=== PATIENT | male | born 1990 | race African-American/Black ===

== ENCOUNTER 2017-01-23 18:54 | Emergency (ER) | payer SELFPAY ==
[~2017-01-23] VITALS: Ht 170.2 cm; Wt 68.0 kg
[2017-01-23] MEDS ORDERED: ALBUTEROL2.5 MG/3 M INH (19:12)
--- NOTE | 2017-01-23 19:24 | Emergency Room Report ---
History of Present Illness General Chief Complaint: Medical Clearance Source: Patient Present Illness HPI 26 YO Male presents to the ED for medical clearance for incarceration. PT C/O hx of asthma denies wheezing, SOB, or cough at this time. Denies pain, fevers, chills, TALLEY, open wounds, bleeding, skin infections.Denies CP, Palpitations, LOC , AMS, dizziness, Changes in Vision, Sensation, paresthesias, or a sudden severe headache. Allergies: Coded Allergies: No Known Allergies (Unverified , 01/23/17) Patient History Past Medical History: see triage record, asthma Past Surgical History: none Pertinent Family History: none Reviewed Nursing Documentation: PMH: Agreed, PSxH: Agreed Nursing Documentation-PMH Past Medical History: No History, Except For Hx Asthma: Yes Review of Systems All Other Systems: negative except mentioned in HPI Physical Exam Vital Signs Date Time Temp Pulse Resp B/P (MAP) Pulse Ox O2 Delivery O2 Flow Rate FiO2 01/23/17 19:07 Room Air Sp02 EP Interpretation: reviewed, normal General Appearance: no apparent distress, alert, GCS 15, non-toxic Head: normocephalic, atraumatic Eyes: bilateral eye normal inspection, bilateral eye PERRL ENT: hearing grossly normal, normal voice Neck: full range of motion, supple/symm/no masses Respiratory: chest non-tender, lungs clear, normal breath sounds, no wheezing, speaking full sentences Cardiovascular #1: regular rate, rhythm Gastrointestinal: normal bowel sounds, non tender, soft, no guarding, no rebound Rectal: deferred Musculoskeletal: back normal, gait/station normal, normal range of motion, non- tender Neurologic: alert, oriented x3, responsive, motor strength/tone normal, sensory intact, speech normal Skin: normal color, no rash, warm/dry, well hydrated Medical Decision Making PA Attestation Dr. Burnett is my supervising Physician whom patient management has been discussed with. Diagnostic Impression: Primary Impression: Medical clearance for incarceration Additional Impression: History of asthma ER Course 26 YO Male presents to the ED for medical clearance for incarceration. PT C/O hx of asthma denies wheezing, SOB, or cough at this time. Denies pain, fevers, chills, TALLEY, open wounds, bleeding, skin infections.Denies CP, Palpitations, LOC , AMS, dizziness, Changes in Vision, Sensation, paresthesias, or a sudden severe headache. Ddx considered but are not limited to Head Trauma, [place], ACS, SI/HI, URI, SAH, Fractures, Dislocations, Tazer barbs, Abrasions, cellulitis, asthma exacerbation Vital signs: are WNL, pt. is afebrile H&PE are most consistent with: normal limited physical examination. ORDERS: none required at this time, the diagnosis is clinical ED INTERVENTIONS: None required at this time. DISCHARGE: At this time pt. is stable for d/c to law enforcement. Will provide printed patient care instructions, and any necessary prescriptions. Care plan and follow up instructions have been discussed with the patient prior to discharge. Last Vital Signs Date Time Temp Pulse Resp B/P (MAP) Pulse Ox O2 Delivery O2 Flow Rate FiO2 01/23/17 19:07 Room Air Disposition: HOME, SELF-CARE Condition: Stable Departure Forms: Custodial Clearance Patient Instructions: Medical Screening Exam Additional Instructions: Take any previously prescribed medications as directed. Follow up with a Primary Care Provider in 3-5 days, even if your symptoms have resolved. Return sooner to ED if new symptoms occur, or current symptoms become worse. - Please note that this Emergency Department Report was dictated using [employer] ( [employer] )desulphurizer operator technology software, occasionally this can lead to erroneous entry secondary to interpretation by the dictation equipment. Alize Bailey Jan 23, 2017 19:24
[2017-01-23 19:54] VITALS: BP_SYST 120; BP_DIAS 82; BP_DIAS 86
== END 2017-01-23 19:50 | disposition home or self-care (01) ==
LOC: EMR 19:29
DX: J45.909 Unspecified asthma, uncomplicated (principal)
CPT/HCPCS: 99283